=== PATIENT | female | born 1965 | race Caucasian/White ===

== ENCOUNTER 2023-07-31 17:08 | Emergency (ER) | payer MEDICAID ==
[~2023-07-31] VITALS: Ht 162.6 cm; Wt 55.2 kg
[2023-07-31 20:08] VITALS: BP 141/80; PULSE 83; O2SAT 98
[2023-07-31] MEDS: cyclobenzaprine 10mg tablet PO ONE (20:26)
[2023-07-31] MEDS: HYDROcodone/acetaminophen 5mg/325mg tablet PO ONE (20:26)
[2023-07-31] MEDS: ketorolac trometh inj. 60 MG/2 ML VIAL IM ONE (20:27)
[2023-07-31] MEDS: dexamethasone sod phosphate 10mg/ml inj IM STA (20:27)
[2023-07-31] MEDS ORDERED: CYCL-1 PO (20:47)
[2023-07-31] MEDS ORDERED: LIDO700A32 TOP (20:47)
[2023-07-31 20:56] VITALS: RESP 16
[2023-07-31 21:22] VITALS: TEMP 98.5
== END 2023-07-31 21:25 | disposition home or self-care (01) ==
LOC: ER 17:09
DX: M54.2 Cervicalgia (principal); G89.29 Other chronic pain; R51.9 Headache, unspecified
CPT/HCPCS: 96372; 99284; J1100; J1885